=== PATIENT | male | born 1945 | race Caucasian/White ===

== ENCOUNTER 2022-06-11 09:50 | Emergency (ER) | payer MEDICARE ==
[2022-06-11] VITALS (12 sets, daily range): BP systolic 119–151; BP diastolic 58–77
[~2022-06-11] VITALS: Ht 170.2 cm; Wt 75.0 kg
[2022-06-11] MEDS ORDERED: ASPIRIN81 MG PO (10:42)
[2022-06-11] MEDS ORDERED: PLAVIX75 MG PO (10:42)
[2022-06-11] MEDS ORDERED: CRESTOR20 MG PO (10:43)
[2022-06-11] MEDS ORDERED: ZETIA10 MG PO (10:44)
[2022-06-11] MEDS ORDERED: TERAZOSIN1 MG PO (10:44)
[2022-06-11] MEDS ORDERED: METOPROL TAR25 MG PO (10:45)
[2022-06-11] MEDS ORDERED: NORVASC5 M1 PO (10:45)
[2022-06-11] MEDS ORDERED: PROTONIX40 M2 PO (10:45)
[2022-06-11] MEDS ORDERED: VITAMIN D325 MCG PO (10:46)
[2022-06-11] MEDS ORDERED: LISINOPRIL10 MG PO (10:46)
[2022-06-11] MEDS ORDERED: VITAMIN B PO (10:47)
[2022-06-11] MEDS ORDERED: CEPHALEXIN500 M1 PO (14:01)
== END 2022-06-11 14:20 | disposition home or self-care (01) ==
LOC: ED 09:50
PROC: 0HQFXZZ Repair Right Hand Skin, External Approach (ICD-10-PCS; principal; 2022-06-11)
DX: S61.212A Laceration without foreign body of right middle finger without damage to nail, initial encounter (principal); I10 Essential (primary) hypertension; I25.10 Atherosclerotic heart disease of native coronary artery without angina pectoris; W26.0XXA Contact with knife, initial encounter; Y93.89 Activity, other specified; Y92.009 Unspecified place in unspecified non-institutional (private) residence as the place of occurrence of the external cause; Z95.5 Presence of coronary angioplasty implant and graft